=== PATIENT | female | born 1945 | race Caucasian/White ===

== ENCOUNTER 2017-08-09 10:48 | Outpatient (CLI) | payer MEDICARE, OTHER ==
[2014-02-16 18:57] VITALS: BP 126/72
[2017-08-09 11:42] LABS: BASOPHILS % 1.2 (0.0-1.5); EOSINOPHILS % 1.5 % (0.0-6.8); MEAN CORPUSCULAR HEMOGLOBIN 30.7 pg (28.0-34.0); MEAN CORPUSCULAR VOLUME 91.8 fl (80.0-100.0); MONOCYTES % 4.9 % (0.0-11.0); NEUTROPHILS # 4.6 # k/uL (1.4-7.7)
[2017-08-09 11:53] LABS: eGFR (African) > 60; eGFR (Non-African) > 60
== END 2017-08-09 10:50 ==
LOC: LAB 10:48
PROVIDERS: ATTEND Physician Assistant
DX: R10.12 Left upper quadrant pain (principal)
CPT/HCPCS: 36415; 80048; 85025

== ENCOUNTER 2017-08-26 09:13 | Day surgery (SDC) | payer MEDICARE, OTHER ==
[2014-02-16 18:57] VITALS: BP 126/72
[~2017-08-26 09:13] MED LIST: LACTATED RINGERS 1,000 ML IV.SOLN IV ONE; PROPOFOL 200 MG/20 ML VIAL IV ONE; SALINE FLUSH 10 ML DISP.SYRIN IVF ONE
--- NOTE | 2017-08-26 15:30 | GI Report ---
REFERRING PHYSICIAN: MARCO A Llanos GROUTER HELPER: Moises Roque MD PROCEDURE MEDICATION: Propofol as per anesthesia. INDICATIONS: This 72-year-old woman has had recent episodes of pain in the left side of the abdomen and change in bowel habits with diarrhea. She had mucous but no blood. 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 She has had kind of irritable bowel symptoms in the past. She does have some gas, bloating, and changes in her stools. Because of the change and pain in the left side, she is referred for a colonoscopy at this time. She does take lisinopril. Dicyclomine seemed to help the pain. She is on a couple of supplements including [place] 3. On exam today, a healed surgical scar in suprapubic area. She still has slight tenderness in the left lower quadrant. PROCEDURE PERFORMED: Colonoscopy with biopsies. PROCEDURE: An Olympus video colonoscope was advanced through the rectum. She does have some mild diverticular disease of the sigmoid colon and a slightly atonic redundant colon but we were able to slowly advance to the cecum. The appendiceal orifice looked normal. The terminal ileum looked normal. On slow withdrawal, the cecum, ascending colon, and transverse colon with no obvious intraluminal lesions noted. The descending colon and sigmoid with scattered diverticula, no obvious diverticulitis. We did take random biopsies looking for microscopic colitis. Retroflexion of the rectum was normal. Patient tolerated the procedure well. FINDINGS: 1. Mild diverticular disease. 2. Kind of a spastic colon. 3. Biopsies pending for microscopic colitis. RECOMMENDATIONS: 1. Pending the biopsy results, would recommend cutting back on fermentable carbohydrates, particularly grains like wheat. See what biopsies show. 2. Pending pathology, consider re-looking at her colon in 5 to 10 years. 3. Follow up with Dr. Ocasio. cc: MARCO A Llanos [facility]
== END 2017-08-26 09:14 ==
LOC: OPSURG 09:13
PROVIDERS: ATTEND Internal Medicine Gastroenterology
DX: K57.30 Diverticulosis of large intestine without perforation or abscess without bleeding (principal); K59.8 Other specified functional intestinal disorders; R10.32 Left lower quadrant pain
CPT/HCPCS: 45380; 88305; J2704; J7120; S1016

== ENCOUNTER 2017-10-10 10:55 | Outpatient (CLI) | payer MEDICARE, OTHER ==
[2014-02-16 18:57] VITALS: BP 126/72
== END 2017-10-10 10:56 ==
LOC: RAD 10:55
PROVIDERS: ATTEND Family Medicine
DX: Z13.820 Encounter for screening for osteoporosis (principal)
CPT/HCPCS: 77080

== ENCOUNTER 2018-07-01 10:12 | Observation (INO) | payer MEDICARE, OTHER ==
--- NOTE | 2018-07-01 10:28 | ED Physician Documentation ---
Abdominal Pain - HISTORIAN Historian: patient - HPI Chief Complaint: Abdominal Pain Additonal Information: Patient has ahd some intermittent abd discomfort felt to be related to IBS. Last noc symptoms became worse. Has vomited once. NO blood in emeisis or BM. Has pain in left side. Onset: hours Duration: constant Timing: still present Context: denies: out of country travel, bad food Severity: moderate Quality: fullness Associated Symptoms: nausea, vomiting, loss of appetite. 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 ) Immunizations: UTD Home Medications: Ambulatory Orders Medication Instructions Recorded Aspirin EC [Ecotrin] 81 mg PO DAILY #100 tablet. 02/16/14 Cholecalciferol (Vitamin D3) 2,000 unit PO DAILY u2 11/26/14 [Vitamin D-3] Multivitamin [Multi Vitamin Daily] 1 each PO DAILY u2 11/26/14 [place]-3/Dha/Epa/Fish Oil [Fish Oil] 500 mg PO DAILY 11/26/14 Allergies/Adverse Reactions: Allergies Allergy/AdvReac Type Severity Reaction Status Date / Time codeine Allergy Intermediate Hives Verified 02/15/14 20:41 tramadol Allergy Mild nausea Verified 02/15/14 20:43 Sulfa (Sulfonamide Allergy Hives Verified 02/15/14 20:42 Antibiotics) - VITAL SIGNS Vital Signs: Vital Signs Temp Pulse Resp BP Pulse Ox 98.3 F 78 20 163/70 100 07/01/18 14:30 07/01/18 14:30 07/01/18 14:30 07/01/18 14:30 07/01/18 14:30 - REVIEWED ASSESSMENTS Nursing Assessment Reviewed: Yes Vitals Reviewed: Yes Progress - Progress Progress: 1111 Patient states that she is not much better. BP remains high at this time. Is starting to get more nauseated. Will try some Zofran. Will give some Hydralizine for elevated BP. 12:03 No significant change noted. Nausea has improved some. Blood work looks good. will get CT scan ordered. ED Results Lab/Radiology - Lab Results Lab Results: Lab Results 07/01/18 11:18 Urine Color Yellow (YELLOW) Urine Appearance Cloudy H (CLEAR) Urine pH 8.5 (5.0 - 8.0) Ur Specific [place] 1.020 (1.010-1.030) Urine Protein Negative mg/dL mg/dL (NEGATIVE) Urine Ketones Negative mg/dL mg/dL (NEGATIVE) Urine Occult Blood Negative (NEGATIVE) Urine Nitrite Negative (NEGATIVE) Urine Bilirubin Negative (NEGATIVE) Urine Urobilinogen 0.2 Eu Eu (0.2-1.0) Ur Leukocyte Esterase 1+ H (NEGATIVE) Urine Glucose Negative mg/dL mg/dL (NEGATIVE) - Radiology Radiology Impressions: History: PT STATES LEFT FLANK PAIN AND N/V X4 DAYS. HX OF ABDOMINAL Sx (Hx) Comparison exams: None available Technique: CT Abdomen/pelvis with IV protocol. Findings: Liver, spleen, adrenals, pancreas, kidneys and gallbladder are without gross irregularity given exam technique. No gallstone. Scarring involving the upper pole of the left kidney. No suspicious renal calcifications. Ureters not well visualized. Questionable two left-sided ureters. Bladder margin within normal limits. Pelvic phleboliths - specifically near the left ureterovesicular junction. Abdominal aorta without aneurysm Peripheral atherosclerotic disease. Cardiac silhouette is not enlarged. No pericardial effusion. Mild prominence of small bowel with air-fluid levels. No abnormal dilation. Stool within the large bowel limiting sensitivity. No mesenteric inflammatory changes or free fluid. Appendix is visualized and is without inflammatory changes. Osseous structures demonstrates degenerative changes and curvature. Lung bases demonstrate emphysematous changes and atelectasis. No effusion. Impression: Left kidney upper pole renal scarring. Left pelvic calcifications at the ureterovesicular junction. While these may represent phleboliths, a distal ureteral stone cannot be excluded. Possibility for two left-sided ureters - consider dedicated renal CT or IVP imaging with delayed imaging to better evaluate. No acute upper abdominal organ inflammatory process. Mild small bowel prominence. No obstruction. No gallstone. Lung base atelectasis. No effusion. - Orders Orders: ED Orders Category Date Time Status CT ABD & PELVIS W/ CON Stat Exams 07/01/18 Taken CBC/PLATELET/DIFF Routine Lab 07/01/18 Completed CMP Routine Lab 07/01/18 Completed LIPASE Stat Lab 07/01/18 Completed UA MACRO DIP ONLY Routine Lab 07/01/18 11:18 Completed URINE CULTURE Routine Lab 07/01/18 11:18 Received 0.9 % Sodium Chloride [Normal Saline] 1,000 ml Med 07/01/18 14:00 Active IV .Q1H Acetaminophen [Ofirmev] Med 07/01/18 13:50 Discontinued 500 mg IV NOW ONE Hydralazine HCl [Apresoline] Med 07/01/18 11:25 Discontinued 25 mg PO .STK-MED ONE Ondansetron HCl Rapdis [Zofran Odt] Med 07/01/18 11:21 Active 4 mg PO Q6H PRN Promethazine HCl [Phenergan] 25 mg Med 07/01/18 13:50 Discontinued 0.9 % Sodium Chloride [Sodium Chloride] 50 ml IV NOW hydrALAZINE HCL [Apresoline] Med 07/01/18 11:21 Discontinued 10 mg IVP NOW ONE Abdominal Pain Physical Exam - Physical Exam General Appearance: alert, moderate distress EENT: eye inspection normal, ENT inspection normal, no signs of dehydration. No : pharyngeal erythema NECK: normal inspection, thyroid normal, supple. No: lymphadenopathy, stiff neck RESPIRATORY: no resp distress, chest non-tender, breath sounds normal. No: wheezes, rales, rhonchi CVS: reg rate & rhythm, heart sounds normal, equal pulses, no murmur, no gallop ABDOMEN: soft, no organomegaly, no distension, tenderness (LUQ, LLQ), decreased BS. No: obturator sign, rebound, guarding, Rovsing's sign BACK: normal inspection, no CVA tenderness SKIN: warm/dry, normal color EXTREMITIES: non-tender NEURO: oriented X3, CN's nml as tested, motor nml, sensation nml, cognition normal Vital Signs: Vital Signs Temp Pulse Resp BP Pulse Ox 98.3 F 78 20 163/70 100 07/01/18 14:30 07/01/18 14:30 07/01/18 14:30 07/01/18 14:30 07/01/18 14:30 Discharge Clincal Impression: Abdominal pain Condition: Stable Disposition: 09 ADMITTED INPATIENT Decision to Admit: [id number] Date of Decison to Admit: 07/01/18 Decision Time: 13:45
[2018-07-01 10:54] LABS: BASOPHILS % 0.7 (0.0-1.5); EOSINOPHILS % 1.6 % (0.0-6.8); MEAN CORPUSCULAR HEMOGLOBIN 31.2 pg (28.0-34.0); MEAN CORPUSCULAR VOLUME 93.5 fl (80.0-100.0); MONOCYTES % 3.9 % (0.0-11.0); NEUTROPHILS # 4.5 # k/uL (1.4-7.7)
[2018-07-01 11:05] LABS: eGFR (African) > 60; eGFR (Non-African) > 60
[2018-07-01] MEDS ORDERED: hydrALAZINE HCL 20 MG/1 ML IVP ONE (11:21)
[2018-07-01] MEDS ORDERED: HYDRALAZINE HCL 25 MG TABLET PO ONE (11:25)
[2018-07-01] MEDS: ONDANSETRON HCL 4 MG TAB.RAPDIS PO PRN ×2 (11:29→21:24)
[2018-07-01 11:58] LABS: APPEARANCE,URINE CLOUDY (CLEAR); COLOR,URINE YELLOW (YELLOW); OCCULT BLOOD,URINE NEGATIVE (NEGATIVE); PH URINE 8.5 (5.0 - 8.0); UROBILINOGEN URINE 0.2 Eu (0.2-1.0)
[2018-07-01] MEDS ORDERED: PROMETHAZINE HCL 25 MG in 0.9 % SODIUM CHLORIDE 50 ML IV ONE (13:50)
[2018-07-01] MEDS ORDERED: ACETAMINOPHEN 1,000 MG/100 ML INJ IV ONE (13:50)
[2018-07-01] MEDS ORDERED: 0.9 % SODIUM CHLORIDE 1,000 ML IV SCH (14:00)
[2018-07-01] MEDS ORDERED: DICYCLOMINE HCL 20 MG TABLET PO PRN (14:17)
[2018-07-01] MEDS ORDERED: ONDANSETRON HCL 4 MG TAB.RAPDIS PO PRN (14:22)
[2018-07-01] MEDS ORDERED: ENOXAPARIN SODIUM 30 MG/0.3 ML DISP.SYRIN SQ SCH (15:00)
[2018-07-01] MEDS: LISINOPRIL 20 MG TABLET PO SCH (15:28)
[2018-07-01 15:55] VITALS: BMI 24.4
--- NOTE | 2018-07-01 17:22 | Diagnostic Imaging Report ---
[facility] [address] [facility] [address] [place], [place]. [address] Report Submission Date: Jul 01, 2018 1:30:33 PM CDT Patient Study Name: ISABELLA GONZALEZ Date: Jul 01, 2018 12:37:40 PM CDT Modality Type: CT\SR Gender: F Description: CT ABD PELVIS W/ CON : 43 Institution: [facility] Physician: JAKY DIAMOND Examination: CT Abdomen/pelvis History: PT STATES LEFT FLANK PAIN AND N/V X4 DAYS. HX OF ABDOMINAL Sx (Hx) Comparison exams: None available Technique: CT Abdomen/pelvis with IV protocol. Findings: Liver, spleen, adrenals, pancreas, kidneys and gallbladder are without gross irregularity given exam technique. No gallstone. Scarring involving the upper pole of the left kidney. No suspicious renal calcifications. Ureters not well visualized. Questionable two left-sided ureters. Bladder margin within normal limits. Pelvic phleboliths - specifically near the left ureterovesicular junction. Abdominal aorta without aneurysm Peripheral atherosclerotic disease. Cardiac silhouette is not enlarged. No pericardial effusion. Mild prominence of small bowel with air-fluid levels. No abnormal dilation. Stool within the large bowel limiting sensitivity. No mesenteric inflammatory changes or free fluid. Appendix is visualized and is without inflammatory changes. Osseous structures demonstrates degenerative changes and curvature. Lung bases demonstrate emphysematous changes and atelectasis. No effusion. Impression: Left kidney upper pole renal scarring. Left pelvic calcifications at the ureterovesicular junction. While these may represent phleboliths, a distal ureteral stone cannot be excluded. Possibility for two left-sided ureters - consider dedicated renal CT or IVP imaging with delayed imaging to better evaluate. No acute upper abdominal organ inflammatory process. Mild small bowel prominence. No obstruction. No gallstone. Lung base atelectasis. No effusion. Electronically signed on Jul 01, 2018 1:30:33 PM CDT by: Raghavendra MEHTA
[2018-07-01] MEDS: ACETAMINOPHEN 325 MG TABLET PO PRN (21:23)
[2018-07-01] MEDS: 0.9 % SODIUM CHLORIDE 1,000 ML IV SCH (21:43)
[2018-07-02] MEDS: 0.9 % SODIUM CHLORIDE 1,000 ML IV SCH ×2 (04:58→14:09)
[2018-07-02] MEDS: ACETAMINOPHEN 325 MG TABLET PO PRN (05:01)
[2018-07-02 06:58] LABS: BASOPHILS % 0.7 (0.0-1.5); EOSINOPHILS % 2.5 % (0.0-6.8); MEAN CORPUSCULAR HEMOGLOBIN 31.4 pg (28.0-34.0); MEAN CORPUSCULAR VOLUME 94.2 fl (80.0-100.0); MONOCYTES % 6.2 % (0.0-11.0); NEUTROPHILS # 4.3 # k/uL (1.4-7.7)
[2018-07-02 08:14] LABS: eGFR (African) > 60; eGFR (Non-African) > 60
[2018-07-02] MEDS: LISINOPRIL 20 MG TABLET PO SCH (08:40)
--- NOTE | 2018-07-02 12:49 | Discharge Summary ---
Discharge Summary - Discharge Sumary History of Present Illness: Patient is a 73-year-old white female with a history of irritable bowel syndrome and intermittent abdominal pain. On the evening prior to admission patient Robb became much worse. Patient started having some vomiting associated with her nausea. Patient subsequently came to the ED for evaluation. Patient was continued to have nausea despite antinausea medication. Patient was subsequently admitted to observation for further care and evaluation. Home Medications: Ambulatory Orders Medication Instructions Recorded Aspirin EC [Ecotrin] 81 mg PO DAILY #100 tablet. 02/16/14 Cholecalciferol (Vitamin D3) 2,000 unit PO DAILY u2 11/26/14 [Vitamin D3] Multivitamin [Multi-Vitamin Daily] 1 each PO DAILY u2 11/26/14 [place]-3/Dha/Epa/Fish Oil [Fish Oil 500 mg PO DAILY 11/26/14 500 mg Softgel] Acetaminophen [Tylenol] 650 mg PO Q6H PRN tablet 07/02/18 Allergies/Adverse Reactions: Allergies Allergy/AdvReac Type Severity Reaction Status Date / Time codeine Allergy Intermediate Hives Verified 02/15/14 20:41 tramadol Allergy Mild nausea Verified 02/15/14 20:43 Sulfa (Sulfonamide Allergy Hives Verified 02/15/14 20:42 Antibiotics) Discharge Summary: Patient was started on IV fluids to maintain hydration. Patient was given Zofran to help with the nausea. CBC and CMP were followed and remained normal. CT scan of the abdomen and pelvis was done which did show a double collecting system associated with the left kidney. There did not appear to be any obstruction. Patient has been followed up by urologist with this. Patient symptoms did improve during her time in the hospital. Patient was subsequently discharged home in stable condition. - Final Diagnosis (1) Abdominal pain Problems: [place] to be related to possible IBS. (2) Essential hypertension Problems: Stable on home medications. (3) double urinary collecting system on left Problems: stable
[2018-07-02 13:27] VITALS: BP 144/69
== END 2018-07-02 15:05 | disposition home or self-care (01) ==
LOC: ED 10:12 → SOUTH 13:50 → UNDOADMIN 13:50 → INTOOBSV 14:00 → SOUTH 14:00 → OBSVTOIN 14:00
PROVIDERS: ADMIT Family Medicine; ATTEND Family Medicine
DX: R10.9 Unspecified abdominal pain (principal); K58.9 Irritable bowel syndrome, unspecified; Q62.5 Duplication of ureter; I10 Essential (primary) hypertension
CPT/HCPCS: 74177; 80053; 81002; 83690; 85025; 87086; 93005; A9270; G0378; J0360; J1650; J2550; J7030; 96360; 96372; 99217; 99218; S1016

== ENCOUNTER 2018-09-27 11:48 | Emergency (ER) | payer MEDICARE, OTHER ==
[2018-09-27] MEDS ORDERED: methylPREDNISolone SOD SUCC 125 MG/2 ML VIAL IM ONE (12:08)
[2018-09-27] MEDS ORDERED: Lidocaine 2% 20ml Vial IP ONE (12:11)
[2018-09-27] MEDS ORDERED: cefTRIAXone SODIUM 1 GM VIAL ONE (12:15)
--- NOTE | 2018-09-27 12:15 | ED Physician Documentation ---
Upper Respiratory Symptoms - HISTORIAN Historian: patient - HPI Stated Complaint: sinus congestion Chief Complaint: Cough/ Upper Respiratory Additional Information: Patient presents to the ED with a 4 day history of nasal congestion, sinus pressure, cough with blood tinged yellow sputum and low-grade temp (99.5). Patient has been doing nasal saline spray and tylenol with no relief. She denies chest pain or shortness of breath. Onset: days ago (4) Duration: constant Context: denies: recent foreign travel Severity: moderate Associated Symptoms: fever (99.5), runny nose, sinus pain, sinus drainage, productive cough (yellow blood tinged) Worsened by Deep Breath: No Further Comments: no - ROS CONST/EYES: denies: weakness CVS/RESP: denies: chest pain, shortness of breath LYMPH: denies: leg swelling, ankle swelling GI/: denies: vomiting, nausea, diarrhea NEURO/PSYCH: dizziness - PAST HX Lung Disease: none PE Risk Factors: hypertension Other History: denies: cardiac disease Surgeries/Procedures: none Allergies/Adverse Reactions: Allergies Allergy/AdvReac Type Severity Reaction Status Date / Time codeine Allergy Intermediate Hives Verified 09/27/18 12:05 tramadol Allergy Mild nausea Verified 09/27/18 12:05 Sulfa (Sulfonamide Allergy Hives Verified 09/27/18 12:05 Antibiotics) tramadol HCl AdvReac Unknown Nausea/Vomi Verified 09/27/18 12:05 ting Home Medications: Ambulatory Orders Medication Instructions Recorded Aspirin EC [Ecotrin] 81 mg PO DAILY #100 tablet. 02/16/14 Cholecalciferol (Vitamin D3) 2,000 unit PO DAILY u2 11/26/14 [Vitamin D3] Multivitamin [Multi-Vitamin Daily] 1 each PO DAILY u2 11/26/14 [place]-3/Dha/Epa/Fish Oil [Fish Oil 500 mg PO DAILY 11/26/14 500 mg Softgel] Acetaminophen [Tylenol] 650 mg PO Q6H PRN tablet 07/02/18 Cefdinir 300 mg PO BID #14 capsule 09/27/18 - SOCIAL HX Smoking History: non-smoker Alcohol Use: none Drug Use: none - FAMILY HX Family History: none - VITAL SIGNS Vital Signs: Vital Signs Temp Pulse Resp BP Pulse Ox 99.3 F 86 18 188/92 98 09/27/18 12:42 09/27/18 12:42 09/27/18 12:42 09/27/18 12:42 09/27/18 12:42 - REVIEWED ASSESSMENTS Nursing Assessment Reviewed: Yes Vitals Reviewed: Yes ED Results Lab/Radiology - Orders Orders: ED Orders Category Date Time Status Lidocaine 2% 20ml Vial [Xylocaine] Med 09/27/18 12:11 Discontinued 2.5 mg IP NOW ONE cefTRIAXone SODIUM [Rocephin] Med 09/27/18 12:15 Discontinued 1 gm .ROUTE .STK-MED ONE cefTRIAXone SODIUM [Rocephin] Med 09/27/18 13:00 Discontinued 1 gm IM QD methylPREDNISolone SOD SUCC [Solu-MEDROL] Med 09/27/18 12:08 Discontinued 125 mg IM NOW ONE Upper Respiratory Symptoms - EXAM General Appearance: no acute distress, alert EENT: nml ENT inspection Neck: supple Respiratory: wheezes (scattered wheezing bilaterally) Abdomen: non-tender, nml bowel sounds CVS: reg rate & rhythm, heart sounds normal Skin: color nml, no rash, warm,dry Extremities: non-tender, normal range of motion Neuro/Psych: oriented x3 Discharge Clincal Impression: Viral upper respiratory infection Prescriptions: Cefdinir 300 mg PO BID #14 capsule Referrals: Kye Ocasio MD [Primary Care Provider] - 2 Days Additional Instructions: Take Mucinex twice daily. Add Benedryl at night. May use Claritin, Valarie or Zyrtec during the day. Do not use Claritin D, Valarie D as these contain a decongestant which will raise your blood pressure. For decongestant use Afrin nose spray, nasal saline spray or Coricidin HBP Condition: Stable Disposition: 01 HOME, SELF-CARE Decision to Admit: NO Date of Decison to Admit: 09/27/18 Decision Time: 12:31
[2018-09-27 12:43] VITALS: BP 188/92
[2018-09-27] MEDS ORDERED: cefTRIAXone SODIUM 1 GM VIAL IM SCH (13:00)
== END 2018-09-27 12:42 | disposition home or self-care (01) ==
LOC: ED 11:48
DX: J06.9 Acute upper respiratory infection, unspecified (principal)
CPT/HCPCS: J0696; J2930; 96372; 99283

== ENCOUNTER 2018-11-03 23:19 | Emergency (ER) | payer MEDICARE, OTHER ==
[2018-11-03] MEDS ORDERED: DILTIAZEM HCL 25 MG/ 5ML VIAL IVP ONE (23:35)
[2018-11-03] MEDS ORDERED: DILTIAZEM HCL 125 MG in 0.9 % SODIUM CHLORIDE 100 ML IV STA (23:56)
[2018-11-04] MEDS ORDERED: POTASSIUM CHLORIDE 20 MEQ/10ML VIAL IV ONE (00:02)
[2018-11-04] MEDS ORDERED: MAGNESIUM SULFATE 2 GM in DEXTROSE 5 % IN WATER 100 ML IV STA ×2 (00:02)
--- NOTE | 2018-11-04 00:17 | ED Physician Documentation ---
Palpitations - HISTORIAN Historian: patient - HPI Stated Complaint: Fast heartbeat Chief Complaint: Palpitations Onset: other (2300) Timing: sudden onset Quality: fast, pounding heart beat Worsened by:: nothing Further Comments: yes (73 year old female patient presents with complaints of palpitations and fast heart rate. Patient states she was in bed sleeping when she awoke with palpitations "racing heart" around 2300. Denies CP or SOB at present. On antibiotic for UTI, started Ampicillin yesterday.) - ROS CONST: no problems RESP: denies: productive cough, bloody cough, other GI/: denies: nausea, vomiting with blood, black stools, abdominal pain, diarrhea, problems urinating, vomiting, other MS/SKIN/LYMPH: denies: ankle swelling, calf pain, rash, leg pain, other EYES/ENT: none NEURO/PSYCH: none - SOCIAL HX Smoking History: non-smoker - FAMILY HX Family History: denies: none - PAST HX Cardiac Disease: other (IBS) Cardiac Rhythm Problems: A-fib (Episode of A Fib in 2013 - converted with IV cardizem bolus and drip; inpatient at [facility] ) Other History: hyperlipidemia Allergies/Adverse Reactions: Allergies Allergy/AdvReac Type Severity Reaction Status Date / Time codeine Allergy Intermediate Hives Verified 11/04/18 01:24 tramadol Allergy Mild nausea Verified 11/04/18 01:24 Sulfa (Sulfonamide Allergy Hives Verified 11/04/18 01:24 Antibiotics) Home Medications: Ambulatory Orders Medication Instructions Recorded Aspirin EC [Ecotrin] 81 mg PO DAILY #100 tablet.dr 02/16/14 Cholecalciferol (Vitamin D3) 2,000 unit PO DAILY u2 11/26/14 [Vitamin D3] Multivitamin [Multi-Vitamin Daily] 1 each PO DAILY u2 11/26/14 [place]-3/Dha/Epa/Fish Oil [Fish Oil 500 mg PO DAILY 11/26/14 500 mg Softgel] Acetaminophen [Tylenol] 650 mg PO Q6H PRN tablet 07/02/18 Cefdinir 300 mg PO BID #14 capsule 09/27/18 - VITAL SIGNS Vital Signs: Vital Signs Temp Pulse Resp BP Pulse Ox 110 H 16 162/97 96 11/04/18 01:00 11/03/18 23:21 11/03/18 23:21 11/03/18 23:21 - REVIEWED ASSESSMENTS Nursing Assessment Reviewed: Yes Vitals Reviewed: Yes Progress - Progress Progress: No improvement in rate after Cardizem 20mg bolus. Drip started at 10mg/hr. 0045 Continued intermittent bursts of 160-165 bpm Atrial Fib - lopressor 5 mg IV given [address] Engel. Recommended transfer; no bulb grader available for consult. Telemetry monitoring not available in ER at this time. 0025 Call to [facility] - case discussed with Dutch TYLER; patient accepted by Dr Trimble. - EKG/XRAY/CT EKG: rhythm (A Fib with RVR; rate 155) - Additional EKG/XRAY/Consults EKG #2: rhythm (0114 - Atrial Fib, rate 122) ED Results Lab/Radiology - Radiology Radiology Impressions: Portable chest History: Cough and hypoxia Findings: The lungs are hyperinflated without infiltrate, pleural effusion, or pneumothorax. Heart size is normal. Osseous structures are intact. Impression: Hyperinflation. Electronically signed on Nov 04, 2018 12:20:48 AM FLAT LOCKER by: Clark Wilburn - Orders Orders: ED Orders Category Date Time Status Continuous EKG monitoring Q30M Care 11/03/18 23:[address] IV Lock 1T Care 11/03/18 23:[address] IV Lock 1T Care 11/04/18 00:01 Active CHEST 1VIEW [RAD] Stat Exams 11/03/18 23:35 Taken CBC/PLATELET/DIFF Stat Lab 11/03/18 23:41 Received CMP Stat Lab 11/03/18 23:41 Received TROPONIN I (cTnI) Stat Lab 11/03/18 23:41 Received UA W/MICRO IF INDICATED Stat Lab 11/03/18 00:17 Received Diltiazem HCl [Cardizem] Med 11/03/18 23:35 Discontinued 20 mg IVP STAT ONE Diltiazem HCl [Cardizem] 125 mg Med 11/03/18 23:56 Active 0.9 % Sodium Chloride [Sodium Chloride] 100 ml IV 1T Magnesium Sulfate 2 gm Med 11/04/18 00:02 Discontinued Dextrose 5 % in Water [D5w] 100 ml IV NOW Metoprolol Tartrate [Toprol] Med 11/04/18 00:47 Discontinued 5 mg IVP NOW ONE [facility] Med 11/04/18 00:18 Discontinued 1 each MC .STK-MED ONE Potassium Chloride [Klor-Con 20 Meq/10Ml] Med 11/04/18 00:02 Discontinued 20 meq IV NOW ONE Potassium Chloride in Water [Potassium Chloride] Med 11/04/18 00:24 Discontinued 10 meq in 100 ml IV .STK-MED Oxygen Daily Oxygen 11/03/18 23:45 Ordered EKG WITH COMPARISON Stat Ther 11/03/18 23:37 Ordered Palpitations Physical Exam - EXAM General Appearance: moderate distress EENT: eye inspection normal, ENT inspection normal, pharynx normal, no signs of dehydration, JOBY, no nystagmus, TM's nml RESPIRATORY: no respiratory distress, breath sounds nml, chest non-tender, respiratory distress CVS: heart sounds normal, equal pulses, no murmur, no gallop, PMI nml, no JVD, no friction rub, irregularly irregular rhy (A Fib with RVR) ABDOMEN: soft, no organomegaly, normal bowel sounds, no abdominal bruit, no distension BACK: normal inspection, no CVA tenderness SKIN: normal color, warm/dry, NR, INT, PAL, DR EXTREMITIES: non-tender, normal range of motion, no evidence of injury, no edema, J, EDGE STRIPPER NEURO: oriented X3, CN's nml as tested, motor nml, sensation nml, mood/affect nml Discharge Clincal Impression: Atrial fibrillation with RVR Referrals: Kye Ocasio MD [Primary Care Provider] - 2 Days Condition: Stable Disposition: XFER SHT-TRM HOSP Decision to Admit: NO Decision Time: 01:22
[2018-11-04] MEDS ORDERED: PHARMACY KEY 1 EACH EACH MC ONE (00:18)
[2018-11-04] MEDS ORDERED: [UNRECOGNIZED DRUG - OTHER] IV ONE ×2 (00:24→01:43)
[2018-11-04] MEDS ORDERED: POTASSIUM CHLORIDE IV ONE ×2 (00:24→01:43)
[2018-11-04] MEDS ORDERED: METOPROLOL TARTRATE 5 MG/5 ML VIAL IVP ONE (00:47)
[2018-11-04 05:15] VITALS: BP 129/88
--- NOTE | 2018-11-04 06:42 | Diagnostic Imaging Report ---
CRISTAL ALFARO (GENERAL LABOR FORKLIFT OPERATOR) - ER [facility] [address] [facility] [address] Report Submission Date: Nov 04, 2018 12:20:48 AM METAL SOLDERER Patient Study Name: ISABELLA GONZALEZ Date: Nov 04, 2018 12:01:41 AM METAL SOLDERER Modality Type: DX Gender: F Description: CHEST : 43 Institution: [facility] Physician: CRISTAL ALFARO (GENERAL LABOR FORKLIFT OPERATOR) - ER Portable chest History: Cough and hypoxia Findings: The lungs are hyperinflated without infiltrate, pleural effusion, or pneumothorax. Heart size is normal. Osseous structures are intact. Impression: Hyperinflation. Electronically signed on Nov 04, 2018 12:20:48 AM METAL SOLDERER by: Clark MEHTA
[2018-11-04 07:45] LABS: MEAN CORPUSCULAR HEMOGLOBIN 30.2 pg (28.0-34.0); eGFR (Non-African) > 60
[2018-11-04 07:46] LABS: BASOPHILS % 0.6 (0.0-1.5); EOSINOPHILS % 3.1 % (0.0-6.8); MONOCYTES % 11.7 % (0.0-11.0); NEUTROPHILS # 4.6 # k/uL (1.4-7.7)
[2018-11-04 07:47] LABS: APPEARANCE,URINE CLOUDY (CLEAR); COLOR,URINE YELLOW (YELLOW)
[2018-11-04 07:48] LABS: OCCULT BLOOD,URINE TRACE (NEGATIVE); UROBILINOGEN URINE 0.2 Eu (0.2-1.0)
== END 2018-11-04 01:58 | disposition short-term general hospital (02) ==
LOC: ED 23:19
DX: I48.2 Chronic atrial fibrillation (principal)
CPT/HCPCS: 36415; 71045; 80053; 81002; 84484; 85025; 93005; 96374; 96375; 99285; J3475; J3480; J3490; S1016

== ENCOUNTER 2018-11-18 13:43 | Outpatient (CLI) | payer MEDICARE, OTHER | END 2018-11-18 14:30 | LOC: LABRHC 13:43 | PROVIDERS: ATTEND Family Medicine | DX: N39.0 Urinary tract infection, site not specified (principal) | CPT/HCPCS: 87086; 87186 ==

== ENCOUNTER 2019-05-11 07:30 | Outpatient (CLI) | payer MEDICARE, OTHER ==
[2019-05-26 14:02] LABS: eGFR (Non-African) > 60
== END 2019-05-11 07:35 | disposition home or self-care (01) ==
LOC: LAB 07:30
PROVIDERS: ATTEND Internal Medicine
DX: I10 Essential (primary) hypertension (principal); I48.0 Paroxysmal atrial fibrillation
CPT/HCPCS: 36415; 80048

== ENCOUNTER 2019-08-06 07:13 | Outpatient (CLI) | payer MEDICARE, OTHER ==
[2019-08-06 07:32] LABS: BASOPHILS % 0.4 % (0.0-1.5); NEUTROPHILS # 4.1 # k/uL (1.4-7.7)
[2019-08-06 07:39] LABS: eGFR (Non-African) > 60
== END 2019-08-06 07:15 ==
LOC: LAB 07:13
PROVIDERS: ATTEND Family Medicine
DX: R10.32 Left lower quadrant pain (principal)
CPT/HCPCS: 36415; 80053; 83690; 85025

== ENCOUNTER 2019-08-07 08:45 | Outpatient (CLI) | payer MEDICARE, OTHER ==
--- NOTE | 2019-08-07 11:36 | Diagnostic Imaging Report ---
JAKY DIAMOND [facility] [address] [facility] [address] [place], [place]. [address] Report Submission Date: Aug 07, 2019 11:07:53 AM CDT Patient Study Name: ISABELLA GONZALEZ Date: Aug 07, 2019 9:19:15 AM CDT Modality Type: CT\SR Gender: F Description: CT ABD PELVIS W/ CON : 43 Institution: [facility] Physician: JAKY DIAMOND Exam: CT abdomen and pelvis with contrast. History: Left lower quadrant pain. Axial images through the abdomen and pelvis after IV infusion of 90 cc Omnipaque 350 is submitted along with sagittal and coronal reformatted images. The examination is compared to a study dated July 01, 2018. The visualized lower lung bloom are clear. No free intraperitoneal air is identified. The gallbladder is contracted without stones. The liver, spleen and pancreas are normal attenuation and enhancement without space-occupying lesion. The adrenal glands are normal configuration. The abdominal aorta is of normal caliber. No periaortic lymphadenopathy is identified. There is redemonstration of subtle linear scarring in the upper pole of the left kidney. Otherwise both kidneys are normal attenuation and enhancement without hydronephrosis. The urinary bladder is partially distended without intrinsic filling defect. The uterus is not visualized. No adnexal masses or free cul-de-sac fluid is seen. The small bowel is of normal caliber. Air and stool seen throughout the large intestine. The appendix is not well visualized. No inflammatory changes in the mesentery or ascites is identified. There is redemonstration of mild retrolisthesis of L2 on L3. Degenerative disc disease throughout the lumbar spine is again identified. Impression: Redemonstration of subtle linear scarring in the upper pole of the left kidney. No hydronephrosis or hydroureter. The appendix is not well visualized. Nonspecific bowel gas pattern. No inflammatory changes in the mesentery or ascites is identified. Electronically signed on Aug 07, 2019 11:07:53 AM CDT by: Abdon MEHTA
== END 2019-08-07 09:05 ==
LOC: RAD 08:45
PROVIDERS: ATTEND Family Medicine
DX: R10.32 Left lower quadrant pain (principal)
CPT/HCPCS: 74177; Q9967